=== PATIENT | female | born 1975 | race Hispanic/Latino ===

== ENCOUNTER 2023-01-06 13:19 | Emergency (ER) | payer OTHER, SELFPAY ==
[2023-01-06 13:55] VITALS: BP 149/93; PULSE 107; RESP 16; TEMP 37; O2SAT 99
--- NOTE | 2023-01-06 14:26 | ED.DIZZY ---
HPI - Dizziness General Chief Complaint: Upper Respiratory Infection Stated Complaint: dizzy,vision issues Source: patient Mode of arrival: wheelchair Limitations: no limitations History of Present Illness HPI Narrative: 47-year-old female presents to [facility] with complaints of intermittent dizziness for the past 6 days. Patient reports that she was diagnosed with a virus approximately 2 weeks ago and was prescribed Tamiflu at that time. Patient reports that she then started with dizziness 6 days ago. Patient reports that she had severe ear pain approximately 3 days ago. Patient denies headache, chest pain, fever, body aches, chills, vomiting or diarrhea. Patient denies history of vertigo. MD elicited complaint: dizziness Onset (ago): day(s) (6) Timing: gradual onset Severity: mild Description: sense of movement and room spinning Context: change in body position Exacerbating factors: movement/ambulation Relieving factors: remaining still Associated symptoms: denies other symptoms Related Data Home Medications Medication Instructions Recorded Confirmed Dramamine 01/06/23 Vicks Vaporub 01/06/23 albuterol sulfate 90 mcg/actuation inhalation 01/06/23 aerosol inhaler Allergies Allergy/AdvReac Type Severity Reaction Status Date / Time No Known Allergies Allergy Verified 01/06/23 13:36 Review of Systems Constitutional: Constitutional: Denies chills, Denies fatigue, Denies fever(s) and Denies weakness ENT: Denies dysphagia, Denies vertigo, Reports dizziness, Denies epistaxis and Denies nasal congestion Cardiovascular: Cardiovascular: Denies chest pain Respiratory: Respiratory: Denies cough, Denies dyspnea and Denies wheezing Gastrointestinal: Gastrointestinal: Denies diarrhea, Denies nausea and Denies vomiting Musculoskeletal: Musculoskeletal: Denies arthralgias, Denies joint swelling and Denies muscle cramps Integumentary/Breasts: Skin/Breast: Denies rash Neurologic: Denies confusion, Denies vertigo, Reports dizziness, Denies syncope, Denies headache(s), Denies focal weakness, Denies numbness and Denies weakness Allergic/Immunologic: Allergic/Immunologic: Denies lip swelling, Denies throat swelling, Denies tongue swelling and Denies wheezing [facility] Social History Social History (Updated 01/06/23 @ 14:28 by Flora Meyers APRN) Smoking status: Current every day smoker Tobacco type: cigarettes Comments At time of signature, I agree with nursing past medical, surgical, social and family history. There is no relevant family history pertinent to the presenting complaint. Exam Const: General: healthy appearing and no acute distress Nutritional Appearance: well nourished and obese Orientation/consciousness: patient oriented x3 Limitations: no limitations HENMT: Head: normal to inspection Ears: EAC's normal and TM abnormal wth effusion serous on the left Face/Nose/Sinus: Normal external nose present Mouth: Yes lip normal and Yes moist mucous membranes Throat: posterior oropharynx normal and uvula midline Eyes: Conjunctivae: conjunctivae normal Neck: Neck: normal visual inspection Resp: Effort & Inspection: normal respiratory effort and not labored Auscultation: clear to auscultation bilaterally, no crackles, no rales, no rhonchi and no wheezes Cardio: Rate: regular rate Rhythm: regular rhythm Heart sounds: no murmurs Skin: General skin exam: normal color Neuro: General: patient oriented x3 Speech: normal speech Gait exam (Neuro): Normal gait present Psych: Affect: normal affect Attitude: cooperative Course Course Level of Care: Express Care Visit Vital Signs Vital signs: Vital Signs Temperature 37.0 C 01/06/23 13:55 Pulse Rate 107 H 01/06/23 13:55 Respiratory Rate 16 01/06/23 13:55 Blood Pressure 149/93 H 01/06/23 13:55 Pulse Oximetry 99 01/06/23 13:55 Oxygen Delivery Room Air 01/06/23 13:55 Temperature 37.0 C 01/06/23 13:55 Pulse Ra
[2023-01-06 14:44] VITALS: BP 137/97; PULSE 98; RESP 16; O2SAT 100
== END 2023-01-06 14:44 | disposition home or self-care (01) ==
PROVIDERS: Emergency Provider Nurse Practitioner Family
DX: H65.192 Other acute nonsuppurative otitis media, left ear (principal)
CPT/HCPCS: 99203; G0463